=== PATIENT | male | born 1990 | race Caucasian/White ===

== ENCOUNTER → 2020-01-31 | Outpatient (CLI) | payer BC | LOC: LAB 13:56 | PROVIDERS: ATTEND Family Medicine | DX: N46.9 Male infertility, unspecified (principal) | CPT/HCPCS: 89320 ==

== ENCOUNTER 2020-04-16 10:00 | Outpatient (RCR) | payer BC ==
[2020-04-16 10:50] LABS: SEMEN VOLUME 5.4 ML (1.5-5.0)
== END 2020-07-08 | disposition home or self-care (01) ==
LOC: LAB 10:00
PROVIDERS: ATTEND Urology
DX: N46.9 Male infertility, unspecified (principal)
CPT/HCPCS: 36415; 83001; 83002; 84402; 84403; 89320